=== PATIENT | female | born 1985 | race Caucasian/White ===

== ENCOUNTER 2016-10-29 13:00 | Inpatient (IN) | payer MEDICAID ==
--- NOTE | 2016-10-29 14:35 | HISTORY & PHYSICAL ---
History of Present Illness (Constantino Mcmahon M.D.; 10/29/2016 2:18 PM) The patient is a 31 year old female who presents for a pre operative evaluation. The patient feels well with no complaints. Surgical procedures include : section. The reason for surgery is section. Date of procedure: (11/04/2016). Planned anesthesia: spinal anesthesia . There have been no problems with general anesthesia, blood/blood products, or surgery in the past. The patient has no identifiable cardiac risk factors. . There are no identifiable risk factors for post operative thromboembolism . In depth conversation with the patient/guardian concerning the procedure, risks, complications, benefits, alternatives and need for further surgery or intervention questions were answered and no guarantees were made. Allergies (Constantino Mcmahon M.D.; 10/29/2016 1:33 PM) [place] Bioflavonoids *CHEMICALS* Rash. Family History (Constantino Mcmahon M.D.; 10/29/2016 1:33 PM) Breast Cancer Maternal Grandmother. age 65 Father In good health. Mother In good health. Social History (Constantino Mcmahon M.D.; 10/29/2016 1:33 PM) Alcohol use None with Tobacco use Former smoker. Quit 10/2013 Medication History (Constantino Mcmahon M.D.; 10/29/2016 1:43 PM) Folic Acid (0.8MG Capsule, 1 Oral daily) Active. Calcium (1 Oral daily) Specific dose unknown - Active. / History (Constantino Mcmahon M.D.; 10/29/2016 2:11 PM) 2. Term 1. Para 1. Labor complications (1st) distress, None, Prolonged labor. 1st gestational age 40+ wks. Father of baby (1st) [place]. 1st date of diuwwwit26/28/2015 Gender (1st) Female. 1st weight "Lisa. Place of delivery (1st) hospital. Delivery mode (1st) -elective, Due to failure of induction of labor. Delivery complications (1st) None. Father of baby (2nd) [place]. Past Surgical History (Constantino Mcmahon M.D.; 10/29/2016 1:33 PM) Delivery No post-op complications. Review of Systems (Constantino Mcmahon M.D.; 10/29/2016 2:11 PM) General Not Present- Fever. Skin Not Present- Rash. HEENT Not Present- Bleeding Gums, Blurred Vision and Headache. Respiratory Not Present- Difficulty Breathing. Breast Not Present- Breast Mass. Cardiovascular Not Present- Chest Pain, Fainting / Blacking Out and Shortness of Breath. Gastrointestinal Not Present- Abdominal Pain, Constipation, Nausea and Vomiting. Female Genitourinary Present- Movements Present and Frequency. Not Present - Contractions, regular, Painful Urination, Vaginal Bleeding and Vaginal Fluid. Musculoskeletal Not Present- Back Pain and Leg Cramps. Neurological Not Present- Dizziness. Psychiatric Not Present- Depression. Hematology Not Present- DVT and Spontaneous Bleeding. Vitals (Constantino Mcmahon M.D.; 10/29/2016 2:11 PM) 10/29/2016 1:26 PM Weight: 225 lb LMP: 02/02/2016 BP: 128/80 (Undefined, Undefined, Undefined) Physical Exam (Constantino Mcmahon M.D.; 10/29/2016 2:19 PM) General General Appearance-Well Appearing, not in active labor. Integumentary Rash-no rashes noted. Head and Neck Neck Global Assessment - full range of motion. Thyroid Gland Characteristics - normal size and consistency and no palpable nodules. ENMT Mouth and Throat Oral Cavity/Oropharynx - Oropharynx - no evidence of airway distress observed. Chest and Lung Exam Chest and lung exam reveals -Clear and quiet, even and easy respiratory effort with no use of accessory muscles. Breast - Did not examine. Cardiovascular Cardiovascular examination reveals -normal heart sounds, regular rate and rhythm with no murmurs. Abdomen Inspection Inspection of the abdomen reveals - No Hernias. Incisional scars - scar. Contour - . Palpation/Percussion Palpation and Percussion of the abdomen reveal - Non Tender and No hepatosplenomegaly. Other Characteristics - No Costovertebral angle tenderness - Left, No Costovertebral angle tenderness - Right. Female Genitourinary Speculum & Bimanual Uterus - Characteristics - Gravid, Non Tender. Obstetric Exam Fundal Height - 36 cm. Heart Rate - 140 bpm. Peripheral Vascular Lower Extremity Palpation - Tenderness - Bilateral - Non Tender. Edema - Bilateral - Trace edema. Neurologic General Assessment of Reflexes Right Knee - 3+. Left Knee - 3+. Neuropsychiatric Mental status exam performed with findings of-Oriented X3 with appropriate mood and affect. Lymphatic Head & Neck General Head & Neck Lymphatics: Bilateral - Description - No Generalized lymphadenopathy. 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 (10/29/2016 2:20 PM) PRADIP
[2016-11-04] MEDS ORDERED: ceFAZolin/DEXTROSE,ISO 2 GM/50 ML PIGGYBACK IV PRN ×2 (06:53→12:19)
[2016-11-04] MEDS ORDERED: FAMOTIDINE IN SALINE, ISO-OSM 20 MG/50 ML PIGGYBACK IV SCH (09:00)
[2016-11-04] MEDS ORDERED: METOCLOPRAMIDE HCL 10 MG/2 ML VIAL IV SCH ×2 (09:00→12:19)
[2016-11-04] MEDS ORDERED: NORFLURANE/HFC 245FA 1 APPLIC CAN TOPICAL ONE (09:10)
[2016-11-04] MEDS ORDERED: ceFAZolin/DEXTROSE,ISO 2 GM/50 ML PIGGYBACK IV ONE (09:28)
[2016-11-04] MEDS ORDERED: FENTANYL 100 MCG/2 ML VIAL ONE (09:44)
[2016-11-04] MEDS ORDERED: ONDANSETRON HCL 4 MG/2 ML VIAL ONE (09:44)
[2016-11-04] MEDS ORDERED: OXYTOCIN 10 UNITS/ML VIAL ONE (09:44)
[2016-11-04] MEDS ORDERED: MORPHINE SULFATE/PF 10 MG/10 ML VIAL ONE (09:44)
[2016-11-04] MEDS ORDERED: NALOXONE HCL 0.4 MG/ML VIAL IV PRN ×9 (10:48→12:19)
[2016-11-04] MEDS ORDERED: DIPHENHYDRAMINE 50 MG/ML VIAL IV PRN ×3 (10:48→12:19)
[2016-11-04] MEDS ORDERED: DIPHENHYDRAMINE 25 MG CAPSULE PO PRN ×2 (10:48→12:19)
[2016-11-04] MEDS ORDERED: NALBUPHINE HCL 10 MG/ML AMP IV PRN ×3 (10:48→12:19)
[2016-11-04] MEDS ORDERED: METOCLOPRAMIDE HCL 10 MG/2 ML VIAL ONE (10:51)
[2016-11-04] MEDS ORDERED: KETOROLAC TROMETHAMINE 30 MG/ML VIAL ONE (11:39)
[2016-11-04] MEDS ORDERED: FENTANYL 100 MCG/2 ML VIAL IV PRN ×2 (11:41→12:19)
[2016-11-04] MEDS ORDERED: ONDANSETRON HCL 4 MG/2 ML VIAL IV PRN ×2 (11:41→12:19)
--- NOTE | 2016-11-04 11:58 | OPERATIVE NOTE: C-Section ---
- Operative Report Date of procedure: 11/04/16 Pre-Op Diagnosis: Term , Repeat LTCS Post-op diagnosis: same Procedure: LTCS Anesthesia Type: Spinal Estimated Blood Loss: 600 Pathology: none sent Sponge and instrument counts: correct X-ray taken: No Estimated Gestational Age (weeks): 39 Delivery Presentation: vertex Heart Monitor: category I Intrapartum Events: none Amniotic Fluid: clear Cord Vessel Description: 3 Vessels Nuchal Cord # of Loops: 0 Cord clamped: Yes Cord blood obtained: Yes at 1 minute: 8 at 5 minutes: 9 Infant Gender: Male [place] Weight: 3.412 kg (7# 8oz) Delivery Complications: Present: none (See dictation)
[2016-11-04] MEDS ORDERED: LACTATED RINGERS 1,000 ML IV SCH (12:00)
[2016-11-04] MEDS ORDERED: KETOROLAC TROMETHAMINE 30 MG/ML VIAL IV PRN (12:19)
[2016-11-04] MEDS ORDERED: LANOLIN CREAM 1 APP/7 GM TUBE TOPICAL PRN (12:19)
[2016-11-04] MEDS ORDERED: SIMETHICONE CHEW 80 MG TABLET PO PRN (12:19)
[2016-11-04] MEDS ORDERED: MAGNESIUM HYDROXIDE 30 ML UDC PO PRN (12:19)
[2016-11-04] MEDS ORDERED: ACETAMINOPHEN 325 MG TABLET PO PRN (12:19)
[2016-11-04] MEDS: ACETAMINOPHEN 1,000 MG/100 ML VIAL IV SCH ×2 (13:03→19:12)
[2016-11-04] MEDS: LACTATED RINGERS 1,000 ML IV SCH ×2 (13:06→22:25)
--- NOTE | 2016-11-04 17:40 | PROGRESS NOTE:C-section ---
Assessment and Plan - Date of Encounter Date of Encounter: 11/04/16 (1) examination following delivery Problem details: S/P primary LTC/S Status: Acute Assessment and plan: 8 hours post-op doing well. Routine care. BF support. EAting. Nash out tomorrow. 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: C-Sec PN Obj Exam - Latest Vital Signs and I&O Latest Vital Signs/I&O: Vital Signs Temp 36.4 C L 11/04/16 15:00 Pulse 79 11/04/16 15:00 Resp 14 11/04/16 15:00 BP 106/63 11/04/16 15:00 Pulse Ox 94 11/04/16 15:00 Intake & Output 11/03/16 11/04/16 11/04/16 17:59 05:59 17:59 Intake Total 2900 Output Total 325 Balance 2575 Weight 101.605 kg Intake: IV 2900 Right Hand 2900 Output: Urine 325 Uretheral (Nash) 50 Other: Urine Appearance Clear Urine Color Yellow Uretheral (Nash) Pale Yellow Voiding Method Indwelling Catheter - Exam Abdomen: Present: soft Bowel sounds: present Incision: Present: dressed (dry) Uterus: Present: firm
[2016-11-04] MEDS: DOCUSATE SODIUM 100 MG CAPSULE PO SCH (21:08)
[2016-11-04] MEDS: DIPHENHYDRAMINE 25 MG CAPSULE PO PRN (21:08)
[2016-11-04] MEDS: IBUPROFEN 600 MG TABLET PO PRN (21:10)
[2016-11-04] MEDS: FAMOTIDINE IN SALINE, ISO-OSM 20 MG/50 ML PIGGYBACK IV SCH (22:25)
[2016-11-05] MEDS: DIPHENHYDRAMINE 25 MG CAPSULE PO PRN ×2 (00:56→04:59)
[2016-11-05] MEDS: ACETAMINOPHEN 1,000 MG/100 ML VIAL IV SCH ×3 (00:57→13:29)
[2016-11-05 08:21] LABS: BASOPHILS 0.2 % (0.0-2.0); EOSINOPHILS 1.7 % (0.0-6.0); EOSINOPHILS# 0.2 X 10^3uL (0.0-0.4); HEMATOCRIT 33.6 % (36.0-48.0); HEMOGLOBIN 11.3 g/dL (12.0-16.0); LYMPHOCYTES 16.8 % (20.0-40.0); LYMPHOCYTES# 1.6 X 10^3uL (0.8-3.8); MEAN CELL VOLUME 87.9 fL (80.0-100.0); MEAN CORPUS. HGB CONCENTRATION 33.6 g/dL (32.0-36.0); MEAN CORPUSCULAR HEMOGLOBIN 29.6 pg (29.0-35.0); MEAN PLATELET VOLUME 8.1 fL (7.4-10.4); MONOCYTES 8.7 % (2.0-10.0); MONOCYTES# 0.8 X 10^3uL (0.2-1.0); NEUTROPHILS 72.6 % (54.0-75.0); NEUTROPHILS# 6.9 X 10^3uL (2.6-6.7); RED BLOOD COUNT 3.82 X 10^6uL (4.20-6.10); RED CELL DISTRIBUTION WIDTH 13.9 % (11.5-14.5); WHITE BLOOD COUNT 9.5 X 10^3uL (3.9-10.7)
[2016-11-05] MEDS: DOCUSATE SODIUM 100 MG CAPSULE PO SCH (08:49)
--- NOTE | 2016-11-05 08:51 | PROGRESS NOTE:C-section ---
Assessment and Plan - Date of Encounter Date of Encounter: 11/05/16 (1) examination following delivery Problem details: S/P primary LTC/S Status: Acute Assessment and plan: 1 day post-op doing well. Routine care. BF support. Eating. Nash out and has already voided. Shower this am. Will remove dressing in shower. 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 Obj Exam - Latest Vital Signs and I&O Latest Vital Signs/I&O: Vital Signs Temp 36.4 C L 11/05/16 07:56 Pulse 89 11/05/16 07:56 Resp 16 11/05/16 07:56 BP 122/77 11/05/16 07:56 Pulse Ox 98 11/05/16 07:56 Intake & Output 11/04/16 11/05/16 11/05/16 17:59 05:59 17:59 Intake Total 2900 2795 400 Output Total 325 4250 900 Balance 2575 -1455 -500 Weight 101.605 kg Intake: IV 2900 1755 300 Right Hand 2900 1755 300 Oral 1040 100 Output: Urine 325 4250 900 Uretheral (Nash) 50 1350 Other: Urine Appearance Clear Clear Clear Urine Color Yellow Pale Pale Yellow Yellow Uretheral (Nash) Pale Pale Yellow Yellow Voiding Method Indwelling Catheter Indwelling Catheter Toilet - Exam Lungs: Bilateral: normal Heart Rhythm: Present: regular Extremities: Present: edema (trace) Bowel sounds: present Incision: Present: dressed Uterus: Present: firm
[2016-11-05] MEDS: FAMOTIDINE IN SALINE, ISO-OSM 20 MG/50 ML PIGGYBACK IV SCH (10:30)
[2016-11-05] MEDS: IBUPROFEN 600 MG TABLET PO PRN (13:30)
[2016-11-06] MEDS: IBUPROFEN 600 MG TABLET PO PRN (00:25)
[2016-11-06] MEDS: DOCUSATE SODIUM 100 MG CAPSULE PO SCH ×2 (00:25→08:44)
[2016-11-06] MEDS: ACETAMINOPHEN 1,000 MG/100 ML VIAL IV SCH (07:21)
[2016-11-06 08:31] VITALS: BP 124/82; PULSE 82; RESP 16; TEMP 97.9; O2SAT 97
--- NOTE | 2016-11-06 08:58 | PROGRESS NOTE:C-section ---
Assessment and Plan - Date of Encounter Date of Encounter: 11/06/16 (1) examination following delivery Problem details: S/P primary LTC/S Status: Acute Assessment and plan: 2 day post-op doing well. Routine care. BF support. Eating. Voidng well. No BM yet. Gave MOM. Shower this am. 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 Doing well. Unremarkable post- course. No complications. Eating, ambulating. No BM yet. Patient reports: appetite normal, pain well controlled, flatus [place]: doing well, nursing well (Mom having sore nipples and I believe this is due to poor. suck. Infant sucking only on tip. His weight down 11%. 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 Obj Exam - Latest Vital Signs and I&O Latest Vital Signs/I&O: Vital Signs Temp 36.6 C 11/06/16 08:00 Pulse 82 11/06/16 08:00 Resp 16 11/06/16 08:00 BP 124/82 11/06/16 08:00 Pulse Ox 97 11/06/16 08:00 Intake & Output 11/05/16 11/06/16 11/06/16 17:59 05:59 17:59 Intake Total 400 Output Total 1650 Balance -1250 Intake: IV 300 Right Hand 300 Oral 100 Output: Urine 1650 Other: Urine Appearance Clear Clear Urine Color Pale Pale Yellow Yellow Voiding Method Toilet Toilet # Voids 1 - Exam Lungs: Bilateral: normal Heart Rhythm: Present: regular Bowel sounds: present Incision: Present: well approximated, sutures intact, open to air Uterus: Present: firm - Lab Labs: Laboratory Last Values WBC 9.5 X 10^3uL (3.9-10.7) 11/05/16 07:35 RBC 3.82 X 10^6uL (4.20-6.10) L 11/05/16 07:35 Hgb 11.3 g/dL (12.0-16.0) L 11/05/16 07:35 Hct 33.6 % (36.0-48.0) L 11/05/16 07:35 MCV 87.9 fL (80.0-100.0) 11/05/16 07:35 MCH 29.6 pg (29.0-35.0) 11/05/16 07:35 MCHC 33.6 g/dL (32.0-36.0) 11/05/16 07:35 RDW 13.9 % (11.5-14.5) 11/05/16 07:35 Plt Count 200 X 10^3uL (130-440) 11/05/16 07:35 MPV 8.1 fL (7.4-10.4) 11/05/16 07:35 Neutrophils % 72.6 % (54.0-75.0) 11/05/16 07:35 Lymphocytes % 16.8 % (20.0-40.0) L 11/05/16 07:35 Eosinophils % 1.7 % (0.0-6.0) 11/05/16 07:35 Basophils % 0.2 % (0.0-2.0) 11/05/16 07:35 Neutrophils # 6.9 X 10^3uL (2.6-6.7) H 11/05/16 07:35 Lymphocytes # 1.6 X 10^3uL (0.8-3.8) 11/05/16 07:35 Monocytes 8.7 % (2.0-10.0) 11/05/16 07:35 Monocytes # 0.8 X 10^3uL (0.2-1.0) 11/05/16 07:35 Eosinophils # 0.2 X 10^3uL (0.0-0.4) 11/05/16 07:35 Basophils # 0.0 X 10^3uL (0.0-0.1) 11/05/16 07:35
== END 2016-11-06 11:50 | disposition home or self-care (01) | DRG 766 ==
LOC: NLC 11-04 08:28
PROVIDERS: ADMIT Family Medicine; ATTEND Family Medicine
PROC: 10D00Z1 Extraction of Products of Conception, Low, Open Approach (ICD-10-PCS; principal; 2016-11-04)
DX: O34.211 Maternal care for low transverse scar from previous cesarean delivery (principal); O99.824 Streptococcus B carrier state complicating childbirth; Z37.0 Single live birth
CPT/HCPCS: 36415; 85025; C1781; J1200; J1885; J2405; J2590; J2765; J3010; J7120; Q0163